=== PATIENT | female | born 1995 | race Caucasian/White ===

== ENCOUNTER 2022-08-14 22:41 | Emergency (ER) | payer MEDICAID, SELFPAY ==
[2022-08-14 23:16] VITALS: BP 113/72; PULSE 70; RESP 20; TEMP 36.3; O2SAT 98; BMI 27.2
[2022-08-15 00:35] LABS: Appearance Urine Clear; Color Urine Dark Yellow; Glucose Urine UA Negative (Negative); Leukocyte Esterase Urine Trace (Negative); Nitrite Urine Positive (Negative); UMIC TRIGGER UACC YES; Urine Blood Negative (Negative); Urine Ketones Negative (Negative); Urine Protein Negative (Neg-Trace)
[2022-08-15 00:36] LABS: Hemoglobin 11.9 g/dl (12.0-16.0); Mean Corpuscular Hemoglobin 31.9 pg (27.0-33.0); Mean Corpuscular Volume 93.8 fL (80.0-98.0); Mean Platelet Volume 10.5 fL (9.4-12.3); Platelet Count 172 X10*3/uL (160-400); Red Blood Count 3.73 X10*6/uL (4.20-5.50); Red Cell Distribution Width 12.2 % (11.0-16.0); White Blood Count 8.3 X10*3/uL (4.8-10.8)
[2022-08-15 00:48] LABS: Bacteria Urine 1+ (None Seen); Hyaline Casts Urine 0-2 /LPF (0-2); RBC Urine 0-2 /HPF (0-2); UACC Culture Trigger YES; WBC Urine 0-5 /HPF (0-5)
[2022-08-15 00:52] LABS: Alanine Aminotransferase 35 U/L (0-31); Albumin Level 4.3 g/dL (3.5-5.0); Alkaline Phosphatase 50 U/L (39-117); Anion Gap 12 (12-20); Aspartate Amino Transferase 21 U/L (5-31); Bilirubin Total 1.2 mg/dL (0.0-1.0); Blood Urea Nitrogen 21 mg/dL (9-16); Calcium 9.4 mg/dL (8.4-10.2); Carbon Dioxide 25 mmol/L (22-29); Chloride 108 mmol/L (96-108); Creatinine Clr Calc Pharmacy 109.7; Estimated Glomerular Filt Rate > 60; Glucose Random 82 mg/dL (60-115); Potassium 4.2 mmol/L (3.3-5.1); Sodium 141 mmol/L (135-145); Total Protein 6.9 g/dL (6.5-8.0)
--- NOTE | 2022-08-15 01:09 | ED.GENADULT ---
HPI - General Adult General Chief complaint: General Medical Stated complaint: uti Time Seen by Provider: 08/15/22 01:09 Source: patient Mode of arrival: ambulatory Limitations: no limitations History of Present Illness HPI narrative: 26-year-old female who presents emergency department for evaluation of possible urinary tract infection. She states that since Monday (6 days prior to evaluation) she has been having urinary frequency and burning when she urinates. She denied fever chills. She denied abdominal pain. She denied nausea vomiting. She has not had any vaginal discharge. Patient states she had similar symptoms in the past when she had a urinary tract infection in 2019. She states she is allergic to 1 antibiotic but she does not know the name of this antibiotic. We have no record of her allergy to an antibiotic. Related Data Previous Rx's Medication Instructions Recorded nitrofurantoin 100 mg PO Q12H 5 days #10 caps 08/15/22 monohydrate/macrocrystals 100 mg capsule (Macrobid) phenazopyridine 200 mg tablet 200 mg PO TID PRN Burning with 08/15/22 (Pyridium) urination 3 days #9 tabs Allergies Allergy/AdvReac Type Severity Reaction Status Date / Time aspirin [ASPIRIN] Allergy Unknown ICTHING Unverified 02/27/20 16:44 Aspirin Allergy Unknown Uncoded 03/29/12 00:00 SEAFOOD Allergy Unknown HIVES Uncoded 02/27/20 16:44 Review of Systems Review of Systems: Yes all other systems are reviewed and are negative [facility] Past Medical History [facility] Narrative: Past medical history: Urinary tract infection 2019. Past surgical history: Back surgery. Social history: She does smoke cigarettes she denies alcohol use, she denies drug use. Social History Social History Advance Directives: No Physical Exam ED Vital Signs: Vital Signs - 24 hr 08/14/22 23:16 Temperature 97.4 F Pulse Rate 70 Respiratory Rate 20 Blood Pressure 113/72 Pulse Oximetry 98 Oxygen Delivery Method Room Air BMI result Body Mass Index 27.2 Vital signs were normal General: Awake alert, female patient, pleasant, cooperative no distress HEENT: Head normal cephalic, atraumatic, pupils equal regular, sclera contact however normal. Neck: Supple Lungs: Clear to auscultation Heart: Regular rate rhythm and rhythm, normal S1-S2 no murmurs rubs or gallops Abdomen: Soft, nontender, nondistended, normoactive bowel sounds Back: No CVA tenderness Extremities: Normal Medical Decision Making Medical Decision Making [facility] Narrative: 26-year-old female who presents emergency department for evaluation of UTI symptoms x6 days. Vital signs and physical examination were unremarkable. Urinalysis was positive for leukocyte esterase and nitrates microscopic revealed 0-2 RBCs 0-5 WBCs and 1+ bacteria. The patient's urinalysis and microscopic are positive and her symptoms are very suggestive urinary tract infection therefore she will be treated with Macrobid 1 pill twice a day for 5 days. She was also given prescription for Pyridium 200 mg 3 times a day as needed for dysuria. She was given printed and verbal instructions and discharged home. Differential Diagnosis Differential diagnosis includes but is not limited to urinary tract infection, cervicitis, urethritis, ST I Lab Data 08/15/22 00:29 08/15/22 00:29 Labs: Lab Results 08/15/22 08/15/22 08/15/22 Range/Units 00:21 00:29 00:29 WBC 8.3 (4.8-10.8) X10*3/uL RBC 3.73 L (4.20-5.50) X10*6/uL Hgb 11.9 L (12.0-16.0) g/dl Hct 35.0 L (37.0-47.0) % MCV 93.8 (80.0-98.0) fL MCH 31.9 (27.0-33.0) pg MCHC 34.0 (31.0-35.0) g/dl RDW 12.2 (11.0-16.0) % Plt Count 172 (160-400) X10*3/uL MPV 10.5 (9.4-12.3) fL Absolute Nucleated RBC 0.000 (0.0-0.012) X10*3/uL Nucleated RBC % (auto) 0.0 (0.0-0.2) /100WBC Sodium 141 (135-145) mmol/L Potassium 4.2 (3.3-5.1) mmol/L Chloride 108 (96-108) mmol/L Carbon Dioxide 25 (22-29) mmol/L Anion Gap 12 (12-20) BUN 21 H (9-16) mg/dL Creatinine 0.77 (0.5-1.4) mg/dL Estim Creat Clear Calc 109.7 Estimated GFR > 60 Random Glucose 82 (60-115) mg/dL Calcium 9.4 (8.4-10.2) mg/dL Total Bilirubin 1.2 H (0.0-1.0) mg/dL AST 21 (5-31) U/L ALT 35 H (0-31) U/L Alkaline Phosphatase 50 (39-117) U/L Total Protein 6.9 (6.5-8.0) g/dL Albumin 4.3 (3.5-5.0) g/dL Urine Color Dark Yellow Urine Appearance Clear Urine pH 7.0 (5.0-9.0) Ur Specific [place] 1.010 (1.005-1.025) Urine Protein Negative (Neg-Trace) mg/dL Urine Glucose (UA) Negative (Negative) mg/dL Urine Ketones Negative (Negative) mg/dL Urine Blood Negative (Negative) Urine Nitrite Positive H (Negative) Ur Leukocyte Esterase Trace H (Negative) Urine RBC 0-2 (0-2) /HPF Urine WBC 0-5 (0-5) /HPF Ur Squamous Epith Cells 3-5 (0-2) /HPF Urine Bacteria 1+ (None Seen) Hyaline Casts 0-2 (0-2) /LPF Discharge Plan Discharge Clinical Impression: UTI (urinary tract infection) Qualifiers: Urinary tract infection type: site unspecified Hematuria presence: without hematuria Qualified Code(s): N39.0 - Urinary tract infection, site not specified Patient Disposition: Home, Self-Care Instructions: Acute Urinary Retention in Women (ED) Additional Instructions: I am treating you for urinary tract infection with Macrobid (nitrofurantoin) 1 pill every 12 hours for 5 days. Take Pyridium 200 mg pills, 1 pill 3 times a day as needed for burning sensation. Stop taking the [id number] Azo while your taking this medication. Take ibuprofen 200 mg pills, 2 pills every 6 hours as needed for pain. Take Tylenol (acetaminophen) 500 mg pills, 2 pills every 4 to 6 hours as needed for pain. Follow-up with your doctor in 2 days. Please return to the emergency department if your symptoms get worse or if you develop any symptoms that are concerning to you. Prescriptions: New phenazopyridine [Pyridium] 200 mg tablet 200 mg PO TID PRN (Reason: Burning with urination) 3 Days Qty: 9 0RF nitrofurantoin monohyd/m-cryst [Macrobid] 100 mg capsule 100 mg PO Q12H 5 Days Qty: 10 0RF Rx Instructions: must administer with a meal/food
[2022-08-15] MEDS: Nitrofurantoin Monohyd/M-Cryst 100 MG CAPSULE PO (01:38)
[2022-08-15 01:42] VITALS: BP 107/54; PULSE 73; RESP 16; O2SAT 98
--- NOTE | 2022-08-15 01:44 | PC.NURSE ---
Pt a&o, denies any sob or chest pain, medicated pt per mar. Reviewed discharge instructions with pt. pt verbalized understanding. No apparent distress at discharge.
== END 2022-08-15 01:45 | disposition home or self-care (01) ==
PROVIDERS: Student in an Organized Health Care Education/Training Program; Emergency Provider Emergency Medicine Emergency Medical Services; PCP Student in an Organized Health Care Education/Training Program
DX: N39.0 Urinary tract infection, site not specified (principal); B96.20 Unspecified Escherichia coli [E. coli] as the cause of diseases classified elsewhere
CPT/HCPCS: 36415; 80053; 81001; 85027; 87086; 87088; 87186; 99283; 99284